=== PATIENT | female | born 1960 | race Caucasian/White ===

== ENCOUNTER 2019-10-28 23:32 | Emergency (ER) | payer MEDICARE, MEDICAID ==
[~2019-10-28] VITALS: Ht 160 cm; Wt 73.0 kg
[2019-10-29] MEDS ORDERED: KETOROLAC 60MG/2ML VIAL IM ONE
[2019-10-29 00:55] VITALS: BP 121/74
== END 2019-10-29 02:00 | disposition left against medical advice (07) ==
LOC: ER 23:32
DX: M54.6 Pain in thoracic spine (principal); I10 Essential (primary) hypertension; E11.9 Type 2 diabetes mellitus without complications
CPT/HCPCS: 93005; 96372; 99283; J1885